=== PATIENT | male | born 1985 | race African-American/Black ===

== ENCOUNTER 2016-12-18 13:32 | Emergency (ER) | payer SELFPAY ==
[2016-12-18 14:12] LABS: Bilirubin Negative (Negative); Blood, Urine Negative (Negative); Clarity Clear (Clear); Glucose, Urine (Dipstick) Negative (Negative); Leukocyte Trace (Negative); Nitrite Negative (Negative); Protein, Urine (Dipstick) Negative (Neg-Trace); Urobilinogen 0.2 mg/dL (0.2-1.0); pH, Urine 6.5 (5.0-9.0)
[2016-12-18 14:13] LABS: Specific Gravity, Urine 1.002 (1.002-1.036)
[2016-12-18 14:15] LABS: Bacteria/HPF None Seen HPF (None Seen); Crystals/HPF None Seen HPF (Negative); Hyaline Casts/LPF NONE SEEN LPF (0-3 Hyaline); Other Casts/LPF None Seen LPF (0-3 Hyaline); Oval Fat Bodies/HPF None Seen HPF (None Seen); RBC/HPF 0-3 HPF (0-3); Renal Epithelial None Seen HPF (0-3); Sperm/HPF None Seen HPF (None Seen); Squamous Epithelial None Seen HPF (0-3); Transitional Epithelial NONE SEEN HPF (0-3); Trichomonas/HPF None Seen HPF (None Seen); WBC/HPF 0-3 HPF (0-3); Yeast-All Forms None Seen HPF (None Seen)
[2016-12-20 16:43] LABS: Chlamydia by PCR Not Detected (NotDetected); GC by PCR Not Detected (NotDetected)
== END 2016-12-18 14:31 | disposition home or self-care (01) ==
LOC: BURERS 13:32
DX: N48.89 Other specified disorders of penis (principal); I10 Essential (primary) hypertension; R30.0 Dysuria; F17.210 Nicotine dependence, cigarettes, uncomplicated
CPT/HCPCS: 81003; 81015; 87252; 87491; 87591; 99283

== ENCOUNTER 2018-07-27 15:33 | Emergency (ER) | payer SELFPAY ==
[2018-07-27] MEDS ORDERED: traMADol HCl 50 MG TAB ONE (16:05)
[2018-07-27] MEDS ORDERED: Ibuprofen 800 MG TAB ONE (16:05)
--- NOTE | 2018-07-27 21:13 | RAD ---
RIGHT ELBOW FOUR VIEWS: 07/27/18 The fat pads are displaced indicating a joint effusion. In spite of this, no definite fracture was vi sible at the moment. The radial head currently appears intact. There is soft tissue swelling posterio r to the joint in the distal arm and proximal forearm. IMPRESSION: Swelling and joint effusion but no fracture seen. Given the presence of fluid, it might be muniz to do a followup x-ray in 7 to 10 days to be sure there is no subtle occult fracture present. POS: HOME
== END 2018-07-27 16:20 | disposition home or self-care (01) ==
LOC: BURERS 15:33
DX: S50.01XA Contusion of right elbow, initial encounter (principal); F17.210 Nicotine dependence, cigarettes, uncomplicated; I10 Essential (primary) hypertension; W22.8XXA Striking against or struck by other objects, initial encounter

== ENCOUNTER 2022-02-24 17:18 | Emergency (ER) | payer SELFPAY ==
[2022-02-24] MEDS ORDERED: Ondansetron PF 4 MG/2 ML Vial ONE (17:44)
[2022-02-24 17:54] LABS: ALT (SGPT) 11 U/L (8-55); AST (SGOT) 42 U/L (5-34); Albumin 6.2 g/dL (3.5-5.0); Alkaline Phosphatase 81 U/L (40-110); Anion Gap 25 mmol/L (10-20); BUN (Urea Nitrogen) 40 mg/dL (8.9-20.6); Band 2 % (5-11); Bilirubin, Total 1.6 mg/dL (0.2-1.2); CK (CPK) 1882 U/L (30-200); Calc. Creatinine Clearance 0 mL/min (70-130); Calcium 11.7 mg/dL (7.8-10.44); Carbon Dioxide 20 mmol/L (22-29); Chloride 99 mmol/L (98-107); Estimated GFR 16; Globulin 4.8 g/dL (2.4-3.5); Glucose 134 mg/dL (70-105); Hemoglobin 17.8 g/dL (14.0-18.0); Lipase 25 U/L (8-78); Lymphocytes 25 % (21-51); MDiff Complete? YES; Mean Corpuscular Hemoglobin 30.1 pg (27.0-31.0); Mean Corpuscular Volume 91.1 fL (78.0-98.0); Monocytes 10 % (0-10); Neutrophil 63 % (42-75); Platelet Count 414 thou/uL (130-400); Potassium 3.8 mmol/L (3.5-5.1); RBC Distribution Width 14.2 % (11.5-14.5); Red Blood Cell (RBC) Count 5.92 mill/uL (4.70-6.10); Sodium 140 mmol/L (136-145); White Blood Cell (WBC) Count 12.6 thou/uL (4.8-10.8)
[2022-02-24 19:04] LABS: Bilirubin Moderate (Negative); Blood, Urine Moderate (Negative); Glucose, Urine (Dipstick) Negative (Negative); Ketone, Urine Trace mg/dL (Negative); Leukocyte Negative (Negative); Nitrite Negative (Negative); Protein, Urine (Dipstick) > or equal to 300 mg/dL (Neg-Trace); Urobilinogen 0.2 mg/dL (Less than 2)
[2022-02-24 19:09] LABS: Clarity Hazy (Clear)
[2022-02-24 19:10] LABS: Bacteria/HPF Rare-Few HPF (None Seen); Mucous/LPF 1+ LPF (<2+); RBC/HPF 0-3 HPF (0-3); Squamous Epithelial 0-3 HPF (0-3); Transitional Epithelial 0-3 HPF (None Seen); WBC/HPF 0-3 HPF (0-3)
[2022-02-24 19:46] LABS: Acetaminophen Less than 10.0 mcg/mL (10.0-30.0); Alcohol Less than 10 mg/dL (Less than 10); Salicylate Less than 8.0 mg/dL (15.0-30.0)
[2022-02-24 19:49] LABS: Cocaine Metabolite Screen Not Detected (NotDetected); Methamphetamine Detected (NotDetected); Phencyclidine (PCP) Not Detected (NotDetected); THC/Cannabinoid Screen Not Detected (NotDetected)
[2022-02-24 19:50] LABS: Amphetamine Detected (NotDetected); Barbiturates Screen Not Detected (NotDetected); Benzodiazepine Screen Not Detected (NotDetected); Medtox Control Line Valid? VALID (VALID); Methadone Not Detected (NotDetected); Opiate Screen Not Detected (NotDetected); Oxycodone Screen Not Detected (NotDetected); Tricyclic Screen Not Detected (NotDetected)
== END 2022-02-24 19:09 | disposition home or self-care (01) ==
LOC: BURERS 17:18
DX: T67.5XXA Heat exhaustion, unspecified, initial encounter (principal); E86.0 Dehydration; M62.82 Rhabdomyolysis; N17.9 Acute kidney failure, unspecified; I10 Essential (primary) hypertension; F17.210 Nicotine dependence, cigarettes, uncomplicated
CPT/HCPCS: 36415; 80053; 80306; 80307; 81003; 81015; 82550; 83690; 85025; 93005; 96361; 96374; J2405